=== PATIENT | male | born 1960 | race Caucasian/White ===

== ENCOUNTER 2016-07-06 11:02 | Emergency (ER) | payer OTHER ==
--- NOTE | 2016-07-06 12:48 | ED CLINICAL REPORT ---
Clinical Report - Physicians/Mid Levels [facility] [address] [place] [address] 07/06/2016 11:03 Patient: BRENDA PHILLIPS Time Seen: 11:27. Arrived- By private vehicle. Historian- patient. HISTORY OF PRESENT ILLNESS Chief Complaint: FEVER RIGHT THIGH PAIN; CONFUSION; FATIGUE. This started about 2 weeks ago and is still present. It was gradual in onset and has been waxing/waning. At its maximum, severity described as severe. When seen in the E.D., severity described as moderate. Modifying factors- worsened by movement and walking. Relieved by rest. No headache. He has had fatigue, muscle aches and constant, generalized weakness. Similar symptoms previously: Recent medical care: Not recently seen/assessed. REVIEW OF SYSTEMS The patient has had fever, abdominal pain and mild back pain. No sore throat, sinus drainage, difficulty breathing, chest pain or vomiting. No diarrhea, black stools, bloody stools or headache. The patient has had a mild cough. No blood tinged sputum or frankly bloody sputum. He has had moderate difficulty with urination (hesitancy), along with frequency. It has been similar to previous symptoms. He has had difficulty with ambulation. It has been associated with pain in the right leg and weakness in both legs. All systems otherwise negative, except as recorded above. PAST HISTORY PCP: NONE [facility] Chronic [facility] pain. History of colon cancer. Substance abuse (morphine). Surgeries: Bowel surgery (with colostomy). Medications: None. Allergies: No Known Drug Allergy. SOCIAL HISTORY Smoker- current status unknown. History of drug use injects morphine chronically. No alcohol use. Is a local resident. 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 ADDITIONAL NOTES The nursing notes have been reviewed. PHYSICAL EXAM Vital Signs: 07/06/2016 11:17 BP: 139/72. HR: 104. RR: 20. O2 saturation: 97%. Temp: 100.8 F. Appearance: Alert. Patient in moderate distress. Eyes: No scleral icterus or pale conjunctivae. ENT: Pharynx normal. No pharyngeal erythema or tonsillar exudate. The mucous membranes are not dry. Neck: Normal inspection. CVS: Tachycardia. Heart sounds normal. Pulses normal. No cardiac murmur. Respiratory: No respiratory distress. Breath sounds normal. Abdomen: No visible injury. Mild tenderness in the periumbilical area and suprapubic area. No mass. (colostomy in place). Back: Normal inspection. Skin: No cyanosis. (Large cellulitis right thigh with large fluctuance superior aspect). No pallor or diaphoresis. Extremities: Extremities exhibit normal ROM. Right thigh: severe erythema and swelling and moderate tenderness located in the upper, mid and lower thigh. Neurovascular intact distally. Neuro: Oriented X 3. No motor deficit. No sensory deficit. LABS, X-RAYS, AND EKG EKG: EKG time: (11:42). Narrow-complex tachycardia (ventricular rate 100). Sinus tachycardia. LVH. Normal axis. Non-specific ST segment / T wave abnormalities. The study has been interpreted contemporaneously by me. The EKG appears to be a good tracing. Chest X-ray: No acute disease. Views: PA and lateral. Technique: good. The X-rays were interpreted by the radiologist and contemporaneously by me. The X-rays were discussed with the radiologist (via PACS note). Chest X-ray #2: (Good line placement, otherwise no interval change). Views: AP (portable). Technique: good. The X-rays were independently viewed by me and interpreted by the radiologist. Lower Extremity Sonography: Large abscess right thigh area FINDINGS: There is a 13.7 x 8.7 x 4 cm complex fluid collection with surrounding hyperemia, consistent with an abscess in the lateral aspect of the right thigh. IMPRESSION: 1. Right lateral thigh subcutaneous fluid collection most consistent with an abscess. Indication for study: extremity pain, swelling and redness. The study was independently viewed by me, interpreted by the radiologist and discussed with the radiologist. Laboratory Tests: UA-Culture if indicated: (EMMA: 07/06/2016 15:30) ( MsgRcvd 07/06/2016 16:51) Final results Test Result Flag Units (Reference) URINE COLOR YELLOW URINE APPEARANCE CLEAR URINE GLUCOSE NEGATIVE (NEGATIVE) URINE BILIRUBIN NEGATIVE (NEGATIVE) URINE KETONE NEGATIVE (NEGATIVE) URINE SPECIFIC GRAVITY 1.025 (1.010-1.030) URINE PH 6.5 (5.0-8.0) URINE PROTEIN TRACE (NEGATIVE) URINE UROBILINOGEN 1.0 EU/dL (0.2-1.0) URINE NITRITE NEGATIVE (NEGATIVE) URINE BLOOD NEGATIVE (NEGATIVE) URINE LEUK ESTERASE NEGATIVE (NEGATIVE) URINE RBC NONE SEEN rbc/hpf (0-1) URINE WBC NONE SEEN wbc/hpf (0-1) URINE EPITHELIAL CELLS 1-3 EPI/hpf (0-5) URINE BACTERIA TRACE (<1+) (NONE SEEN) URINE COMMENT CULT NOT INDICATED CALCIUM OXALATE CRYSTALS 1+URINE CULTURES ARE SET-UP BASED ON THE FOLLOWING CRITERIA:POSITIVE NITRITEPOSITIVE LEUKOCYTE ESTERASEGREATER THAN 10 WHITE BLOOD CELLSMODERATE (2+) OR GREATER BACTERIA CBC w Diff: (EMMA: 07/06/2016 15:45) ( TngRcvd 07/06/2016 16:31) Final results Test Result Flag Units (Reference) WHITE BLOOD COUNT 16.7 H K/uL (4.5-11.5) RED BLOOD COUNT 4.12 L M/uL (4.50-5.90) HEMOGLOBIN 12.1 L gm/dL (13.5-17.5) HEMATOCRIT 37.4 L % (41.0-53.0) MEAN CELL VOLUME 91 fL (80-100) MEAN CORPUSCULAR HGB 29 pg (26-34) MEAN CORPUSCULAR HGB CONC 32 g/dL (31-37) RED CELL DISTRIBUTION WIDTH 13.9 % (11.6-14.8) PLATELET COUNT 307 K/uL (150-400) NEUTROPHIL % 81.0 H % (50-75) LYMPH % 7.5 L % (25-40) MONO % 8.4 % (3-14) EOSINOPHIL % 1.1 % (0-4) BASOPHIL % 2.0 % (0-2) PT with INR: (EMMA: 07/06/2016 15:45) ( TngRcvd 07/06/2016 16:37) Final results Test Result Flag Units (Reference) INR 1.1 (0.8-1.2) Low Intensity Therapy: INR 1.5-2.0 PT range 18.5-23.1Mod.Intensity Therapy: INR 2.0-3.0 PT range 23.1-31.5High Intensity Therapy: INR 2.5-3.5 PT range 27.4-35.5High Intensity Therapy 2: INR 3.0-4.0 PT range 31.5-39.3 Urine Drug Screen: (EMMA: 07/06/2016 15:30) ( [facility] 07/06/2016 16:49) Final results Test Result Flag Units (Reference) AMPHETAMINE/METHAMPHETAMINE POSITIVE H (NEGATIVE) BARBITURATE NEGATIVE (NEGATIVE) BENZODIAZEPINE NEGATIVE (NEGATIVE) CANNABINOID NEGATIVE (NEGATIVE) COCAINE NEGATIVE (NEGATIVE) ECSTASY POSITIVE H (NEGATIVE) METHADONE NEGATIVE (NEGATIVE) OPIATE POSITIVE H (NEGATIVE) The urine drug screen is a qualitative screening test fordrug overdose and abuse. All screen results should beconsidered as presumptive.Drugs screened for are as follows:BenzodiazepinesCocaineAmphetamines/MetamphetaminesTHC (Tetrahydrocannabinol)OpiatesBarbituratesEcstasyMethadonePositive results are unconfirmed. For confirmation, notifythe lab for the specimen to be sent to the reference lab.All confirmations must be performed by a differentmethodology.The ingestion of natural herbal and plant productscontaining Ephedra/Ephedra metabolites can produce in urineone or more substances capable of cross reacting withamphetamine/methamphetamine immunoassays. These testsprovide a preliminary result only. A more specificalternative chemical method must be used to obtain aconfirmed analytical result. BNP: (EMMA: 07/06/2016 15:45) ( [facility] 07/06/2016 16:53) Final results Test Result Flag Units (Reference) B-TYPE NATRIURETIC PEPTIDE 18.3 pg/ml (5-100) CHEM 13 PANEL: (EMMA: 07/06/2016 15:45) ( [facility] 07/06/2016 16:48) Final results Test Result Flag Units (Reference) GLUCOSE 77 mg/dL (70-110) BUN 15 mg/dL (7-18) CREATININE 0.4 L mg/dL (0.6-1.3) Estimated GFR >60 mL/min Estimated GFR- >60 mL/min Note: Persistent reduction over 3 months in eGFR<60 mL/min/1.73 m2 defines CKD. Patients with eGFR values>=60 mL/min/1.73 m2 may also have CKD if evidence ofpersistent proteinuria. Additional information may be foundat www.kidney.org. SODIUM 141 mmol/L (136-145) POTASSIUM 3.1 L mmol/L (3.5-5.1) CHLORIDE 111 H mmol/L (98-107) CARBON DIOXIDE 25 mmol/L (21-32) CALCIUM 5.7 *L mg/dL (8.5-10.1) CRITICAL RESULTS CALLEDCalled to ISRA 07/06/16 1647Were 2 patient identifiers used? YWas the result read back? Y TOTAL PROTEIN 4.9 L g/dL (6.4-8.2) ALBUMIN 1.6 L g/dL (3.3-5.0) BILIRUBIN, TOTAL 0.2 mg/dL (0.0-1.0) ALKALINE PHOSPHATASE 53 U/L (46-116) AST (SGOT) 22 U/L (15-37) ALT (SGPT) 22 U/L (12-78) MAGNESIUM 1.2 L mg/dL (1.8-2.4) LIPASE 56 L U/L (73-393) AMYLASE 21 L U/L (25-115) CPK 82 U/L (24-260) TROPONIN I <0.05 ng/mL (0.00-1.5) TROPONIN REFERENCE RANGE:<0.1 NEGATIVE0.1-1.5 INDETERMINANT>1.5 POSITIVE THYROID STIMULATING HORMONE 0.494 uIU/mL (0.30-3.74) . Pulse Oximetry: 07/06/2016 11:17 O2 saturation: 97%. (FIO2 - room air). Interpretation: normal. PROGRESS AND PROCEDURES Course of Care: Pt is a "shooter with a fever" and will need to be admitted for endocarditis works up . He has a large right thigh abscess and will need drainage. Pt states he wants to have this treated in the OR. 11:54 07/06/16. No beds at [facility]; No beds at [facility]. Calling PRMCE No beds at [facility]. [facility] beds [facility] No beds in the [facility] or [place] system Dilaudid 1mg + phenergan 25mg IM. Vancomycin 2g (held as no IV line immediately available - will send with pt). Invanz 1 g IM. IV fluids begun. 12:00 07/06/16. Spoke with Adams aguilera) - staffing issue at [facility], so no beds. No beds at [facility], or other surrounding hospitals other than [facility] 15:43 07/06/16. PICC line just placed. Transport in ED now. Vancomycin held as BLS cannot have abx - will send with pt and he will have it begun immediately upon arrival. Pt prefers PICC line vs IJ or subclavian line. Pt prefers OR treatment of this large abscess vs attempted ED I&D. 17:02 07/06/16. Labs just back - hypocalcemia, hypokalemia, leukocytosis and U tox with meth - he denied this. Discussed case with hospitalist, (Saida (?sp)). Reviewed test results. Agreed upon treatment plan and decision to admit. Health care provider will see patient in hospital. Patient/family counseled. Old ED records reviewed. Disposition: Transferred. [facility]. Condition: stable and guarded. CLINICAL IMPRESSION Fever (in the setting of injection drug use). Deep abscess to the right lower extremity (large abscess). 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 Hypocalcemia. Hypokalemia. (Electronically signed by Chase Carrizales DO 07/08/2016 7:25)
--- NOTE | 2016-07-06 12:48 | ED NURSING NOTES ---
Clinical Report - Nurses [facility] [address] [place] [address] 07/06/2016 11:03 Patient: BRENDA PHILLIPS TRIAGE Triage time 11:17. Acuity: LEVEL 4. Chief Complaint: Location of symptoms- (Injecting Morphine daily into leg). Alert. --11:31 Rhoda Guerrero R.N. 11:17 07/06/16. BP: 139/72. HR: 104. RR: 20. O2 saturation: 97%. Temp: 100.8 F. --11:31 Rhoda Guerrero R.N. 11:33 07/06/16. Pain level now 8/10. --11:33 Rhoda Guerrero R.N. Weight: 72.5 kg stated. Height/Length: 73 inches. BMI: 21.1. --11:21 Rhoda Guerrero R.N. Medications None. --11:19 hRoda Guerrero R.N. Allergies No Known Drug Allergy. --11:19 Rhoda Guerrero R.N. History Arrived by private vehicle. Historian: patient. Accompanied by family. Primary physician (none). ( Pt has Cancer and is self medicating daily with morphine). ( Severe edema and swelling in right posterior upper theigh). PAST MEDICAL HX: Tetanus status: up-to-date. SOCIAL HX: Current every day heavy tobacco smoker- less than 1 pack per day. Does not smoke cigarettes. History of heavy drug use. (morphine). No alcohol use. --11:31 Rhoda Guerrero R.N. PROBLEMS: Cancer colon. --11:25 Rhoda Guerrero R.N. ADDITIONAL SURGERIES: Back Surgery. Colonoscopy. Colostomy. Facial surgery. Sinus Surgery. --11:25 Rhoda Guerrero R.N. PHYSICAL ASSESSMENT Ambulatory to room. Patient gowned. GENERAL / NEURO / PSYCH: Oriented X 4. Alert. Appears in pain and in distress. EXTREMITIES: Right hip. Right thigh: tenderness and swelling (right thigh buttock area grossly red and edemetous). --11:32 Rhoda Guerrero R.N. NURSING PROGRESS NOTES Patient gowned. GENERAL / NEURO / PSYCH: Alert. Two patient identifiers checked. Call light placed in reach. --11:33 Rhoda Guerrero R.N. Patient ready for evaluation- ED physician notified. --11:33 Rhoda Guerrero R.N. EKG time: (1142). EKG was ordered, performed by a tech and shown to the ED physician. --12:05 Lily Brooks Patient is not calm. ( Pt has decided to stay and continue with treatment. Awaiting PICC nurse to come in so we are able to get labs). --12:46 Rhoda Guerrero R.N. 12:44 07/06/16. BP: 138/75. HR: 100. RR: 20. O2 saturation: 95%. --12:46 Rhoda Guerrero R.N. 13:31 07/06/16. BP: 133/66. HR: 100. RR: 18. O2 saturation: 98%. Pain level now 4/10. --13:32 Rhoda Guerrero R.N. The patient is calm and resting quietly. Overall patient status is the same. Patient waiting for (PICC nurse). --13:32 Rhoda Guerrero R.N. 15:45 07/06/2016 Site #1 started via IV upper arm using a topical anesthetic, with aseptic technique and good blood return; one attempt (PICC line placed by Valencia Nobles RN--placement checked by CXR/Radiologist). --16:17 Sanchez Finch R.N. 15:50 07/06/2016 Started bag #1 1000 mL IV Fluids IV NS (Saline); at 1000 mL/hr over 60 minute(s) via site #1. Allergies verified and confirmed 5 rights. IV patency established. IV site checked: no pain, redness, or swelling. IV flushed thoroughly pre- and post-medication administration. --23:31 Sanchez Finch R.N. 16:04 07/06/2016 Invanz IM 1 gm given. Given in the right ventral gluteus and left ventral gluteus (split dose). Allergies verified and confirmed 5 rights. --16:14 Sanchez Finch R.N. 16:14 07/06/2016 Started 2 gm of Vancomycin IVPB in bag #1 500 mL; at 250 mL/hr over 2 hour(s) via site #1; (Sent with EMS to be administered by receiving facility). --16:19 Sanchez Finch R.N. 14:00 07/06/16. BP: 130/66. HR: 96. RR: 18. O2 saturation: 97% on room air. Pain level now: 12/23. --16:56 Sanchez Finch R.N. 15:00 07/06/16. BP: 127/65. HR: 95. RR: 16. O2 saturation: 97% on room air. Pain level now: 12/23. Additional comments: (R) Thigh. --16:57 Sanchez Finch R.N. 17:00 07/06/16. ( Results of Lab work faxed to [place], [place]). --17:03 Sanchez Finch R.N. 17:00 07/06/2016 IV Fluids IV NS Continued: upon discharge at the rate of 1000 mL/hr. 750 mL remaining bag #1. IV patency established. IV site checked: no pain, redness, or swelling. IV flushed thoroughly. --23:33 Sanchez Finch R.N. DISPOSITION / DISCHARGE 15:45 07/06/16. BP: 135/71. HR: 94. RR: 96. O2 saturation: 97% on room air. Pain level now: 01/23. --16:49 Sanchez Finch R.N. Departure time: 1600. --16:49 Sanchez Finch R.N. 16:00. Transferred ([place], [place]). Transported via ambulance by transport team with IV. Report was given to a nurse via a phone call. Report included patient's care, treatment, medications, reviewed medication reconcilliation, and condition (including any recent changes or anticipated changes). (MADHURI Dill). Bed obtained (Rm# [id number]). Patient's personal items; items were placed in belongings bag and transported with the patient. --16:53 Sanchez Finch R.N. 17:00. ( Correction: Pt actually transferred to [place], [place].). --17:04 Sanchez Finch R.N. Locked/Released at 07/06/2016 23:36 by Sanchez Finch R.N.
--- NOTE | 2016-07-06 12:48 | ED NURSING NOTES ---
Clinical Report - Nurses [facility] [address] [place] [address] 07/06/2016 11:03 Patient: BRENDA PHILLIPS TRIAGE Triage time 11:17. Acuity: LEVEL 4. Chief Complaint: Location of symptoms- (Injecting Morphine daily into leg). Alert. --11:31 Rhoda Guerrero R.N. 11:17 07/06/16. BP: 139/72. HR: 104. RR: 20. O2 saturation: 97%. Temp: 100.8 F. --11:31 Rhoda Guerrero R.N. 11:33 07/06/16. Pain level now 8/10. --11:33 Rhoda Guerrero R.N. Weight: 72.5 kg stated. Height/Length: 73 inches. BMI: 21.1. --11:21 Rhoda Guerrero R.N. Medications None. --11:19 Rhoda Guerrero R.N. Allergies No Known Drug Allergy. --11:19 Rhoda Guerrero R.N. History Arrived by private vehicle. Historian: patient. Accompanied by family. Primary physician (none). ( Pt has Cancer and is self medicating daily with morphine). ( Severe edema and swelling in right posterior upper theigh). PAST MEDICAL HX: Tetanus status: up-to-date. SOCIAL HX: Current every day heavy tobacco smoker- less than 1 pack per day. Does not smoke cigarettes. History of heavy drug use. (morphine). No alcohol use. --11:31 Rhoda Guerrero R.N. PROBLEMS: Cancer colon. --11:25 Rhoda Guerrero R.N. ADDITIONAL SURGERIES: Back Surgery. Colonoscopy. Colostomy. Facial surgery. Sinus Surgery. --11:25 Rhoda Guerrero R.N. PHYSICAL ASSESSMENT Ambulatory to room. Patient gowned. GENERAL / NEURO / PSYCH: Oriented X 4. Alert. Appears in pain and in distress. EXTREMITIES: Right hip. Right thigh: tenderness and swelling (right thigh buttock area grossly red and edemetous). --11:32 Rhoda Guerrero R.N. NURSING PROGRESS NOTES Patient gowned. GENERAL / NEURO / PSYCH: Alert. Two patient identifiers checked. Call light placed in reach. --11:33 Rhoda Guerrero R.N. Patient ready for evaluation- ED physician notified. --11:33 Rhoda Guerrero R.N. EKG time: (1142). EKG was ordered, performed by a tech and shown to the ED physician. --12:05 Lily Brooks Patient is not calm. ( Pt has decided to stay and continue with treatment. Awaiting PICC nurse to come in so we are able to get labs). --12:46 Rhoda Guerrero R.N. 12:44 07/06/16. BP: 138/75. HR: 100. RR: 20. O2 saturation: 95%. --12:46 Rhoda Guerrero R.N. 13:31 07/06/16. BP: 133/66. HR: 100. RR: 18. O2 saturation: 98%. Pain level now 4/10. --13:32 Rhoda Guerrero R.N. The patient is calm and resting quietly. Overall patient status is the same. Patient waiting for (PICC nurse). --13:32 Rhoda Guerrero R.N. 15:45 07/06/2016 Site #1 started via IV upper arm using a topical anesthetic, with aseptic technique and good blood return; one attempt (PICC line placed by Valencia Nobles RN--placement checked by CXR/Radiologist). --16:17 Sanchez Finch R.N. 15:50 07/06/2016 Started bag #1 1000 mL IV Fluids IV NS (Saline); at 1000 mL/hr over 60 minute(s) via site #1. Allergies verified and confirmed 5 rights. IV patency established. IV site checked: no pain, redness, or swelling. IV flushed thoroughly pre- and post-medication administration. --23:31 Sanchez Finch R.N. 16:04 07/06/2016 Invanz IM 1 gm given. Given in the right ventral gluteus and left ventral gluteus (split dose). Allergies verified and confirmed 5 rights. --16:14 Sanchez Finch R.N. 16:14 07/06/2016 Started 2 gm of Vancomycin IVPB in bag #1 500 mL; at 250 mL/hr over 2 hour(s) via site #1; (Sent with EMS to be administered by receiving facility). --16:19 Sanchez Finch R.N. 14:00 07/06/16. BP: 130/66. HR: 96. RR: 18. O2 saturation: 97% on room air. Pain level now: 12/23. --16:56 Sanchez Finch R.N. 15:00 07/06/16. BP: 127/65. HR: 95. RR: 16. O2 saturation: 97% on room air. Pain level now: 12/23. Additional comments: (R) Thigh. --16:57 Sanchez Finch R.N. 17:00 07/06/16. ( Results of Lab work faxed to [place], [place]). --17:03 Sanchez Finch R.N. 17:00 07/06/2016 IV Fluids IV NS Continued: upon discharge at the rate of 1000 mL/hr. 750 mL remaining bag #1. IV patency established. IV site checked: no pain, redness, or swelling. IV flushed thoroughly. --23:33 Sanchez Finch R.N. DISPOSITION / DISCHARGE 15:45 07/06/16. BP: 135/71. HR: 94. RR: 96. O2 saturation: 97% on room air. Pain level now: 01/23. --16:49 Sanchez Finch R.N. Departure time: 1600. --16:49 Sanchez Finch R.N. 16:00. Transferred ([place], [place]). Transported via ambulance by transport team with IV. Report was given to a nurse via a phone call. Report included patient's care, treatment, medications, reviewed medication reconcilliation, and condition (including any recent changes or anticipated changes). (MADHURI Dill). Bed obtained (Rm# 210). Patient's personal items; items were placed in belongings bag and transported with the patient. --16:53 Sanchez Finch R.N. 17:00. ( Correction: Pt actually transferred to [place], [place].). --17:04 Sanchez Finch R.N. Locked/Released at 07/06/2016 23:36 by Sanchez Finch R.N.
--- NOTE | 2016-07-06 12:48 | ED CLINICAL REPORT ---
Clinical Report - Physicians/Mid Levels [facility] [address] [place] [address] 07/06/2016 11:03 Patient: BRENDA PHILLIPS Time Seen: 11:27. Arrived- By private vehicle. Historian- patient. HISTORY OF PRESENT ILLNESS Chief Complaint: FEVER RIGHT THIGH PAIN; CONFUSION; FATIGUE. This started about 2 weeks ago and is still present. It was gradual in onset and has been waxing/waning. At its maximum, severity described as severe. When seen in the E.D., severity described as moderate. Modifying factors- worsened by movement and walking. Relieved by rest. No headache. He has had fatigue, muscle aches and constant, generalized weakness. Similar symptoms previously: Recent medical care: Not recently seen/assessed. REVIEW OF SYSTEMS The patient has had fever, abdominal pain and mild back pain. No sore throat, sinus drainage, difficulty breathing, chest pain or vomiting. No diarrhea, black stools, bloody stools or headache. The patient has had a mild cough. No blood tinged sputum or frankly bloody sputum. He has had moderate difficulty with urination (hesitancy), along with frequency. It has been similar to previous symptoms. He has had difficulty with ambulation. It has been associated with pain in the right leg and weakness in both legs. All systems otherwise negative, except as recorded above. PAST HISTORY PCP: NONE - [facility] Chronic [facility] pain. History of colon cancer. Substance abuse (morphine). Surgeries: Bowel surgery (with colostomy). Medications: None. Allergies: No Known Drug Allergy. SOCIAL HISTORY Smoker- current status unknown. History of drug use injects morphine chronically. No alcohol use. Is a local resident. 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 ADDITIONAL NOTES The nursing notes have been reviewed. PHYSICAL EXAM Vital Signs: 07/06/2016 11:17 BP: 139/72. HR: 104. RR: 20. O2 saturation: 97%. Temp: 100.8 F. Appearance: Alert. Patient in moderate distress. Eyes: No scleral icterus or pale conjunctivae. ENT: Pharynx normal. No pharyngeal erythema or tonsillar exudate. The mucous membranes are not dry. Neck: Normal inspection. CVS: Tachycardia. Heart sounds normal. Pulses normal. No cardiac murmur. Respiratory: No respiratory distress. Breath sounds normal. Abdomen: No visible injury. Mild tenderness in the periumbilical area and suprapubic area. No mass. (colostomy in place). Back: Normal inspection. Skin: No cyanosis. (Large cellulitis right thigh with large fluctuance superior aspect). No pallor or diaphoresis. Extremities: Extremities exhibit normal ROM. Right thigh: severe erythema and swelling and moderate tenderness located in the upper, mid and lower thigh. Neurovascular intact distally. Neuro: Oriented X 3. No motor deficit. No sensory deficit. LABS, X-RAYS, AND EKG EKG: EKG time: (11:42). Narrow-complex tachycardia (ventricular rate 100). Sinus tachycardia. LVH. Normal axis. Non-specific ST segment / T wave abnormalities. The study has been interpreted contemporaneously by me. The EKG appears to be a good tracing. Chest X-ray: No acute disease. Views: PA and lateral. Technique: good. The X-rays were interpreted by the radiologist and contemporaneously by me. The X-rays were discussed with the radiologist (via PACS note). Chest X-ray #2: (Good line placement, otherwise no interval change). Views: AP (portable). Technique: good. The X-rays were independently viewed by me and interpreted by the radiologist. Lower Extremity Sonography: Large abscess right thigh area FINDINGS: There is a 13.7 x 8.7 x 4 cm complex fluid collection with surrounding hyperemia, consistent with an abscess in the lateral aspect of the right thigh. IMPRESSION: 1. Right lateral thigh subcutaneous fluid collection most consistent with an abscess. Indication for study: extremity pain, swelling and redness. The study was independently viewed by me, interpreted by the radiologist and discussed with the radiologist. Laboratory Tests: UA-Culture if indicated: (EMMA: 07/06/2016 15:30) ( MsgRcvd 07/06/2016 16:51) Final results Test Result Flag Units (Reference) URINE COLOR YELLOW URINE APPEARANCE CLEAR URINE GLUCOSE NEGATIVE (NEGATIVE) URINE BILIRUBIN NEGATIVE (NEGATIVE) URINE KETONE NEGATIVE (NEGATIVE) URINE SPECIFIC GRAVITY 1.025 (1.010-1.030) URINE PH 6.5 (5.0-8.0) URINE PROTEIN TRACE (NEGATIVE) URINE UROBILINOGEN 1.0 EU/dL (0.2-1.0) URINE NITRITE NEGATIVE (NEGATIVE) URINE BLOOD NEGATIVE (NEGATIVE) URINE LEUK ESTERASE NEGATIVE (NEGATIVE) URINE RBC NONE SEEN rbc/hpf (0-1) URINE WBC NONE SEEN wbc/hpf (0-1) URINE EPITHELIAL CELLS 1-3 EPI/hpf (0-5) URINE BACTERIA TRACE (<1+) (NONE SEEN) URINE COMMENT CULT NOT INDICATED CALCIUM OXALATE CRYSTALS 1+URINE CULTURES ARE SET-UP BASED ON THE FOLLOWING CRITERIA:POSITIVE NITRITEPOSITIVE LEUKOCYTE ESTERASEGREATER THAN 10 WHITE BLOOD CELLSMODERATE (2+) OR GREATER BACTERIA CBC w Diff: (EMMA: 07/06/2016 15:45) ( NvgRcvd 07/06/2016 16:31) Final results Test Result Flag Units (Reference) WHITE BLOOD COUNT 16.7 H K/uL (4.5-11.5) RED BLOOD COUNT 4.12 L M/uL (4.50-5.90) HEMOGLOBIN 12.1 L gm/dL (13.5-17.5) HEMATOCRIT 37.4 L % (41.0-53.0) MEAN CELL VOLUME 91 fL (80-100) MEAN CORPUSCULAR HGB 29 pg (26-34) MEAN CORPUSCULAR HGB CONC 32 g/dL (31-37) RED CELL DISTRIBUTION WIDTH 13.9 % (11.6-14.8) PLATELET COUNT 307 K/uL (150-400) NEUTROPHIL % 81.0 H % (50-75) LYMPH % 7.5 L % (25-40) MONO % 8.4 % (3-14) EOSINOPHIL % 1.1 % (0-4) BASOPHIL % 2.0 % (0-2) PT with INR: (EMMA: 07/06/2016 15:45) ( NvgRcvd 07/06/2016 16:37) Final results Test Result Flag Units (Reference) INR 1.1 (0.8-1.2) Low Intensity Therapy: INR 1.5-2.0 PT range 18.5-23.1Mod.Intensity Therapy: INR 2.0-3.0 PT range 23.1-31.5High Intensity Therapy: INR 2.5-3.5 PT range 27.4-35.5High Intensity Therapy 2: INR 3.0-4.0 PT range 31.5-39.3 Urine Drug Screen: (EMMA: 07/06/2016 15:30) ( [employer] 07/06/2016 16:49) Final results Test Result Flag Units (Reference) AMPHETAMINE/METHAMPHETAMINE POSITIVE H (NEGATIVE) BARBITURATE NEGATIVE (NEGATIVE) BENZODIAZEPINE NEGATIVE (NEGATIVE) CANNABINOID NEGATIVE (NEGATIVE) COCAINE NEGATIVE (NEGATIVE) ECSTASY POSITIVE H (NEGATIVE) METHADONE NEGATIVE (NEGATIVE) OPIATE POSITIVE H (NEGATIVE) The urine drug screen is a qualitative screening test fordrug overdose and abuse. All screen results should beconsidered as presumptive.Drugs screened for are as follows:BenzodiazepinesCocaineAmphetamines/MetamphetaminesTHC (Tetrahydrocannabinol)OpiatesBarbituratesEcstasyMethadonePositive results are unconfirmed. For confirmation, notifythe lab for the specimen to be sent to the reference lab.All confirmations must be performed by a differentmethodology.The ingestion of natural herbal and plant productscontaining Ephedra/Ephedra metabolites can produce in urineone or more substances capable of cross reacting withamphetamine/methamphetamine immunoassays. These testsprovide a preliminary result only. A more specificalternative chemical method must be used to obtain aconfirmed analytical result. BNP: (EMMA: 07/06/2016 15:45) ( [facility] 07/06/2016 16:53) Final results Test Result Flag Units (Reference) B-TYPE NATRIURETIC PEPTIDE 18.3 pg/ml (5-100) CHEM 13 PANEL: (EMMA: 07/06/2016 15:45) ( [facility] 07/06/2016 16:48) Final results Test Result Flag Units (Reference) GLUCOSE 77 mg/dL (70-110) BUN 15 mg/dL (7-18) CREATININE 0.4 L mg/dL (0.6-1.3) Estimated GFR >60 mL/min Estimated GFR- >60 mL/min Note: Persistent reduction over 3 months in eGFR<60 mL/min/1.73 m2 defines CKD. Patients with eGFR values>=60 mL/min/1.73 m2 may also have CKD if evidence ofpersistent proteinuria. Additional information may be foundat www.kidney.org. SODIUM 141 mmol/L (136-145) POTASSIUM 3.1 L mmol/L (3.5-5.1) CHLORIDE 111 H mmol/L (98-107) CARBON DIOXIDE 25 mmol/L (21-32) CALCIUM 5.7 *L mg/dL (8.5-10.1) CRITICAL RESULTS CALLEDCalled to ISRA 07/06/16 1647Were 2 patient identifiers used? YWas the result read back? Y TOTAL PROTEIN 4.9 L g/dL (6.4-8.2) ALBUMIN 1.6 L g/dL (3.3-5.0) BILIRUBIN, TOTAL 0.2 mg/dL (0.0-1.0) ALKALINE PHOSPHATASE 53 U/L (46-116) AST (SGOT) 22 U/L (15-37) ALT (SGPT) 22 U/L (12-78) MAGNESIUM 1.2 L mg/dL (1.8-2.4) LIPASE 56 L U/L (73-393) AMYLASE 21 L U/L (25-115) CPK 82 U/L (24-260) TROPONIN I <0.05 ng/mL (0.00-1.5) TROPONIN REFERENCE RANGE:<0.1 NEGATIVE0.1-1.5 INDETERMINANT>1.5 POSITIVE THYROID STIMULATING HORMONE 0.494 uIU/mL (0.30-3.74) . Pulse Oximetry: 07/06/2016 11:17 O2 saturation: 97%. (FIO2 - room air). Interpretation: normal. PROGRESS AND PROCEDURES Course of Care: Pt is a "shooter with a fever" and will need to be admitted for endocarditis works up . He has a large right thigh abscess and will need drainage. Pt states he wants to have this treated in the OR. 11:54 07/06/16. No beds at [facility]; No beds at [facility]. Calling PRMCE No beds at [facility]. No beds at [facility]. No beds in the [place] or [place] system Dilaudid 1mg + phenergan 25mg IM. Vancomycin 2g (held as no IV line immediately available - will send with pt). Invanz 1 g IM. IV fluids begun. 12:00 07/06/16. Spoke with Adams aguilera) - staffing issue at [facility], so no beds. No beds at [facility], or other surrounding hospitals other than [place] 15:43 07/06/16. PICC line just placed. Transport in ED now. Vancomycin held as BLS cannot have abx - will send with pt and he will have it begun immediately upon arrival. Pt prefers PICC line vs IJ or subclavian line. Pt prefers OR treatment of this large abscess vs attempted ED I&D. 17:02 07/06/16. Labs just back - hypocalcemia, hypokalemia, leukocytosis and U tox with meth - he denied this. Discussed case with hospitalist, (Saida (?sp)). Reviewed test results. Agreed upon treatment plan and decision to admit. Health care provider will see patient in hospital. Patient/family counseled. Old ED records reviewed. Disposition: Transferred. [facility]. Condition: stable and guarded. CLINICAL IMPRESSION Fever (in the setting of injection drug use). Deep abscess to the right lower extremity (large abscess). 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 Hypocalcemia. Hypokalemia. (Electronically signed by Chase Carrizales DO 07/08/2016 7:25)
--- NOTE | 2016-07-06 12:48 | ED ORDER SUMMARY ---
..... Patient: BRENDA PHILLIPS OrderSheet [facility] VisitID: [id number] [address] [place] [address] 55y, M Registration Date/Time: 07/06/2016 ORDER SHEET Weight: 72.5 kg (stated) Allergies: No Known Drug Allergy GENERAL ORDERS: Chest 2V Urgent (1107/06/2016 PHutchinson DO) (Ack 11:29 TBergley) (13:12 DMaziarka R.N.) [facility] Owner (Continuous) (07/06/2016 [facility]) (Ack 11:29 TBergley) (11:34 DMaziarka R.N.) UA-Culture if indicated Urgent (07/06/2016 PHinchinson DO) (Ack 11:29 TBergley) (16:19 JRomanelli R.N.) Cardiac Panel Stat (07/06/2016 [facility]) (Ack 11:29 TBergley) (16:19 JRomanelli R.N.) BNP Urgent (07/06/2016 PHinchinson DO) (Ack 11:29 TBergley) (16:19 JRomanelli R.N.) Amylase Urgent (07/06/2016 PHinchinson DO) (Ack 11:29 TBergley) (16:19 JRomanelli R.N.) Urine Drug Screen Urgent (07/06/2016 PHinchinson DO) (Ack 11:29 TBergley) (16:19 JRomanelli R.N.) TSH Urgent (07/06/2016 PHinchinson DO) (Ack 11:29 TBergley) (16:19 JRomanelli R.N.) Lipase Urgent (07/06/2016 PHinchinson DO) (Ack 11:29 TBergley) (16:19 JRomanelli R.N.) PT with INR Urgent (07/06/2016 PHinchinson DO) (Ack 11:29 TBergley) (16:19 JRomanelli R.N.) Pulse oximeter (11:27 07/06/2016 [facility]) (Ack 11:29 TBergley) (11:34 DMaziarka R.N.) EKG - ER Stat (11:27 07/06/2016 [facility]) (Ack 11:29 TBergley) (12:16 DMaziarka R.N.) Vitals (11:27 07/06/2016 [facility]) (Ack 11:29 TBergley) (11:34 DMaziarka R.N.) US Soft Tissue Anywhere (IDU) Urgent (11:33 07/06/2016 [facility]) (Ack 11:36 TBergley) (13:12 DMaziarka R.N.) Blood Culture (No) (N/A) Urgent (11:34 07/06/2016 [facility]) (Ack 11:36 TBergley) (16:19 JRomanelli R.N.) (Cancelled: Unable to Nptistx96:20 JRomanelli R.N.) - (RT for PICC line) (12:04 07/06/2016 [facility]) (Ack 12:31 TBergley) (13:13 DMaziarka R.N.) Chest 1V Urgent (15:18 07/06/2016 JRomanelli R.N. verbal order read back to [facility]) (Ack 15:21 TBergley) (15:41 Donell) MEDICATION ORDERS: Dilaudid IM 1 mg (HIGH ALERT MEDICATION, NOW) (13:18 07/06/2016 [facility]) (Cancelled: Other16:20 JRomanelli R.N.) Phenergan IM 25 mg (HIGH ALERT MEDICATION, NOW) (13:19 07/06/2016 [facility]) (Cancelled: Other16:21 JRomanelli R.N.) Invanz IM 1 gm (NOW) (15:44 07/06/2016 [facility]) (16:14 JRomanelli R.N.) IV FLUIDS: IV NS : initial bolus 1000 mL (1000 mL/hr), then 500 mL/hr for X2 (NOW) (11:27 07/06/2016 PHuttabitha HYDE) (Ack 12:17 Alana R.N.) (23:31 Elkin R.N.) Zofran IV 4 mg (NOW) (11:34 07/06/2016 [facility]) (Ack 12:17 Alana R.N.) (Cancelled: Other23:33 Elkin R.N.) Vancomycin IV 2 gm/500 mL (NOW) (12:47 07/06/2016 [facility]) (16:19 Elkin R.N.) ORDER SHEET NOTES: [Electronically signed by Sanchez Finch R.N. (23:36 07/06/2016)] [Electronically signed by Chase Carrizales DO (07:25 07/08/2016)] [Electronically locked/signed by Sanchez Finch R.N. (23:36 07/06/2016)]
--- NOTE | 2016-07-06 12:48 | ED ORDER SUMMARY ---
..... Patient: BRENDA PHILLIPS OrderSheet [facility] VisitID: [id number] [address] [place] [address] 55y, M Registration Date/Time: 07/06/2016 ORDER SHEET Weight: 72.5 kg (stated) Allergies: No Known Drug Allergy GENERAL ORDERS: Chest 2V Urgent (1107/06/2016 PHutchinson DO) (Ack 11:29 TBergley) (13:12 DMaziarka R.N.) Dispatch Associate (Continuous) (07/06/2016 [facility]) (Ack 11:29 TBergley) (11:34 DMaziarka R.N.) UA-Culture if indicated Urgent (07/06/2016 PHcachinson DO) (Ack 11:29 TBergley) (16:19 JRomanelli R.N.) Cardiac Panel Stat (07/06/2016 [facility]) (Ack 11:29 TBergley) (16:19 JRomanelli R.N.) BNP Urgent (07/06/2016 PHcachinson DO) (Ack 11:29 TBergley) (16:19 JRomanelli R.N.) Amylase Urgent (07/06/2016 PHcachinson DO) (Ack 11:29 TBergley) (16:19 JRomanelli R.N.) Urine Drug Screen Urgent (07/06/2016 PHcachinson DO) (Ack 11:29 TBergley) (16:19 JRomanelli R.N.) TSH Urgent (07/06/2016 PHcachinson DO) (Ack 11:29 TBergley) (16:19 JRomanelli R.N.) Lipase Urgent (07/06/2016 PHcachinson DO) (Ack 11:29 TBergley) (16:19 JRomanelli R.N.) PT with INR Urgent (07/06/2016 PHcachinson DO) (Ack 11:29 TBergley) (16:19 JRomanelli R.N.) Pulse oximeter (11:27 07/06/2016 [facility]) (Ack 11:29 TBergley) (11:34 DMaziarka R.N.) EKG - ER Stat (11:27 07/06/2016 [facility]) (Ack 11:29 TBergley) (12:16 DMaziarka R.N.) Vitals (11:27 07/06/2016 [facility]) (Ack 11:29 TBergley) (11:34 DMaziarka R.N.) US Soft Tissue Anywhere (IDU) Urgent (11:33 07/06/2016 [facility]) (Ack 11:36 TBergley) (13:12 DMaziarka R.N.) Blood Culture (No) (N/A) Urgent (11:34 07/06/2016 [facility]) (Ack 11:36 TBergley) (16:19 JRomanelli R.N.) (Cancelled: Unable to Vpxztfm68:20 JRomanelli R.N.) - (RT for PICC line) (12:04 07/06/2016 [facility]) (Ack 12:31 TBergley) (13:13 DMaziarka R.N.) Chest 1V Urgent (15:18 07/06/2016 JRomanelli R.N. verbal order read back to [facility]) (Ack 15:21 TBergley) (15:41 Donell) MEDICATION ORDERS: Dilaudid IM 1 mg (HIGH ALERT MEDICATION, NOW) (13:18 07/06/2016 [facility]) (Cancelled: Other16:20 JRomanelli R.N.) Phenergan IM 25 mg (HIGH ALERT MEDICATION, NOW) (13:19 07/06/2016 [facility]) (Cancelled: Other16:21 JRomanelli R.N.) Invanz IM 1 gm (NOW) (15:44 07/06/2016 [facility]) (16:14 JRomanelli R.N.) IV FLUIDS: IV NS : initial bolus 1000 mL (1000 mL/hr), then 500 mL/hr for X2 (NOW) (11:27 07/06/2016 PHuttabitha HYDE) (Ack 12:17 Alana R.N.) (23:31 Elkin R.N.) Zofran IV 4 mg (NOW) (11:34 07/06/2016 [facility]) (Ack 12:17 Alana R.N.) (Cancelled: Other23:33 Elkin R.N.) Vancomycin IV 2 gm/500 mL (NOW) (12:47 07/06/2016 [facility]) (16:19 Elkin R.N.) ORDER SHEET NOTES: [Electronically signed by Sanchez Finch R.N. (23:36 07/06/2016)] [Electronically signed by Chase Carrizales DO (07:25 07/08/2016)] [Electronically locked/signed by Sanchez Finch R.N. (23:36 07/06/2016)]
--- NOTE | 2016-07-06 13:47 | DIAGNOSTIC IMAGING REPORT ---
PROCEDURE: US SOFT TISSUE ANYWHERE INDICATION: RIGHT THIGH SWELLING / ABSCESS TECHNIQUE: Kimball scale and color Doppler ultrasound COMPARISON: None. FINDINGS: There is a 13.7 x 8.7 x 4 cm complex fluid collection with surrounding hyperemia, consistent with an abscess in the lateral aspect of the right thigh. IMPRESSION: 1. Right lateral thigh subcutaneous fluid collection most consistent with an abscess 2. Results discussed with Dr. Carrizales
--- NOTE | 2016-07-06 14:01 | DIAGNOSTIC IMAGING REPORT ---
PROCEDURE: XR CHEST 2 VIEW INDICATION: SHORTNESS OF BREATH, initial encounter TECHNIQUE: PA and lateral view. COMPARISON: None. FINDINGS: Lungs are clear. Cardiovascular structures are normal. Bony thorax is unremarkable. IMPRESSION: 1. Negative chest.
--- NOTE | 2016-07-06 16:49 | DIAGNOSTIC IMAGING REPORT ---
PROCEDURE: XR CHEST 1 VIEW INDICATION: CHECK PICC LINE PLACEMENT TECHNIQUE: Portable AP view 03:37 p.m. COMPARISON: Chest x-ray 07/06/2016 FINDINGS: Interval placement of a right PICC line with the tip in the SVC. Lungs and mediastinum are normal. Thorax is normal. IMPRESSION: 1. Right PICC line in satisfactory position 2. Results discussed with respiratory ([place])
--- NOTE | 2016-07-08 07:25 | ED MED RECONCILIATION SUMMARY ---
Patient: BRENDA PHILLIPS Medication Reconciliation Report [facility] VisitID: [id number] [address] [place] [address] 55y, M Registration Date/Time: 07/06/2016 Weight: 72.5 kg Height/Length: 73 in. BMI: 21.1 ALLERGIES: No Known Drug Allergy The patient's Home Medications are listed below: NONE. The source(s) of the original Home Medication information: Not obtained. The following Medications were given to the patient in the Emergency Department: Invanz [IM] IM 1 gm, administered: 07/06/2016 4:04:00 PM Vancomycin [IVPB] IVPB bolus 0, then 2 gm 250 mL/hr, administered: 07/06/2016 4:14:00 PM IV NS IV Fluids bolus 0, then 1000 mL/hr, administered: 07/06/2016 3:50:00 PM The following Medications were prescribed to the patient: None.
--- NOTE | 2016-07-08 07:25 | ED MED RECONCILIATION SUMMARY ---
Patient: BRENDA PHILLIPS Medication Reconciliation Report [facility] VisitID: [id number] [address] [place] [address] 55y, M Registration Date/Time: 07/06/2016 Weight: 72.5 kg Height/Length: 73 in. BMI: 21.1 ALLERGIES: No Known Drug Allergy The patient's Home Medications are listed below: NONE. The source(s) of the original Home Medication information: Not obtained. The following Medications were given to the patient in the Emergency Department: Invanz [IM] IM 1 gm, administered: 07/06/2016 4:04:00 PM Vancomycin [IVPB] IVPB bolus 0, then 2 gm 250 mL/hr, administered: 07/06/2016 4:14:00 PM IV NS IV Fluids bolus 0, then 1000 mL/hr, administered: 07/06/2016 3:50:00 PM The following Medications were prescribed to the patient: None.
--- NOTE | 2016-07-08 07:25 | ED MAR SUMMARY ---
..... Medication Administration Record [facility] [address] [place] [address] Patient: BRENDA PHILLIPS Visit ID: [id number] 55y, M Weight: 72.5 kg Height/Length: 73 in BMI: 21.1 ALLERGIES: No Known Drug Allergy Start 15:50 07/06/2016 Sanchez Finch R.N., Continued Upon Discharge 17:00 07/06/2016 Sanchez Finch R.N. Medication Administered: IV NS (SALINE), Dose: IV Fluids over 60 minute(s), Rate: 1000 mL/hr, Dispensed: 1000 mL bag, Site: #1 upper arm. Medication Ordered: IV NS : initial bolus 1000 mL (1000 mL/hr), then 500 mL/hr for X2 (NOW). Given 16:04 07/06/2016 Sanchez Finch RKateNKate Medication Administered: INVANZ [IM], Dose: 1 gm IM. Medication Ordered: Invanz IM 1 gm (NOW). Start 16:14 07/06/2016 Sanchez Finch RKateN. Medication Administered: VANCOMYCIN [IVPB], Dose: 2 gm IVPB over 2 hour(s), Rate: 250 mL/hr, Dispensed: 500 mL bag, Site: #1 upper arm. Medication Ordered: Vancomycin IV 2 gm/500 mL (NOW).
--- NOTE | 2016-07-08 07:25 | ED MAR SUMMARY ---
..... Medication Administration Record [facility] [address] [place] [address] Patient: BRENDA PHILLIPS Visit ID: [id number] 55y, M Weight: 72.5 kg Height/Length: 73 in BMI: 21.1 ALLERGIES: No Known Drug Allergy Start 15:50 07/06/2016 Sanchez Finch R.N., Continued Upon Discharge 17:00 07/06/2016 Sanchez Finch R.N. Medication Administered: IV NS (SALINE), Dose: IV Fluids over 60 minute(s), Rate: 1000 mL/hr, Dispensed: 1000 mL bag, Site: #1 upper arm. Medication Ordered: IV NS : initial bolus 1000 mL (1000 mL/hr), then 500 mL/hr for X2 (NOW). Given 16:04 07/06/2016 Sanchez Finch RKateNKate Medication Administered: INVANZ [IM], Dose: 1 gm IM. Medication Ordered: Invanz IM 1 gm (NOW). Start 16:14 07/06/2016 Sanchez Finch RKateN. Medication Administered: VANCOMYCIN [IVPB], Dose: 2 gm IVPB over 2 hour(s), Rate: 250 mL/hr, Dispensed: 500 mL bag, Site: #1 upper arm. Medication Ordered: Vancomycin IV 2 gm/500 mL (NOW).
--- NOTE | 2016-07-08 07:25 | ED DISCHARGE INSTRUCTIONS ---
Patient: BRENDA PHILLIPS General Instructions [facility] VisitID: [id number] [address] [place] [address] 55y, M Registration Date/Time: 07/06/2016 Fever (in the setting of injection drug use). Deep abscess to the right lower extremity (large abscess). 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 Hypocalcemia. Hypokalemia. (Electronically signed by Chase Carrizales DO 07/08/2016 7:25)
--- NOTE | 2016-07-08 07:25 | ED DISCHARGE INSTRUCTIONS ---
Patient: BRENDA PHILLIPS General Instructions [facility] VisitID: [id number] [address] [place] [address] 55y, M Registration Date/Time: 07/06/2016 Fever (in the setting of injection drug use). Deep abscess to the right lower extremity (large abscess). 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 Hypocalcemia. Hypokalemia. (Electronically signed by Chase Carrizales DO 07/08/2016 7:25)
== END 2016-07-06 17:00 | disposition home or self-care (01) ==
LOC: ED SRH 11:02
DX: L02.415 Cutaneous abscess of right lower limb (principal); R50.9 Fever, unspecified; F15.10 Other stimulant abuse, uncomplicated; F11.10 Opioid abuse, uncomplicated; E83.51 Hypocalcemia; E87.6 Hypokalemia; F17.200 Nicotine dependence, unspecified, uncomplicated
CPT/HCPCS: 90004; 90100; 90616; 91320; 92235; 92530; 92610; 92720; 92760; 92761; 92762; 92763; 92764; 92765; 92766; 92767; 93140; 94060; 95059